=== PATIENT | female | born 1990 | race Caucasian/White ===

== ENCOUNTER 2018-10-24 03:41 | Day surgery (SDC) | payer MEDICAID, OTHER ==
[2018-10-24 04:39] VITALS: BP 105/61; TEMP 97.6; BMI 29.4
[2018-10-24 04:56] LABS: Amnisure Test No Membranes Rupture (No Rupture)
[2018-10-24 04:57] LABS: Amnisure Internal Control QC ACCEPTABLE (ACCEPTABLE)
--- NOTE | 2018-10-24 05:22 | PDOC.LDHP ---
Labor and Delivery H&P Chief complaint: loss of fluid HPI: 27 yo @ 29wks presents with concern for LOF. At 0020 she was feeding her 11 mo child when she suddenly felt a gush of fluid. She did not think it looked like urine. It was clear, nonbloody. She endorses good movement. She denies VB, endorse abdominal cramping but states that it doesn't feel like full on contractions. She endorses persistent vaginal discharge that is milky/white throughout entire . Current gestational age (weeks): 29 Due date: 01/09/19 Dating criteria: last menstrual period Grav: 2 Para: 1 OB History Details: 2018 delivery via to a female at 36.6 wks no complications Current complications: none Abnormal US findings: No Past Medical History: none Current medications: none Previous surgical history: cholecystectomy, other (tonsillectomy, wisdom teeth removed) Allergies/Adverse Reactions: Allergies Allergy/AdvReac Type Severity Reaction Status Date / Time No Known Allergies Allergy Unverified 10/24/18 04:21 Social history: none - Physical Exam Vital signs reviewed and normal: yes General: NAD, resting, other (vaginal speculum exam without signs of gross rupture; milky white discharge at cervical os) Heart: other (systolic murmur 2/6) Lungs: CTAB Abdomen: NTTP Extremeties: no edema FHT: category 2, variable decelerations, variability present (moderate; accels present) [place] contractions every: irritability - Assessment 27 yo @ 29wks here for LOF. - Plan -: 1.), sIUP 2.)LOF, concern for PPROM -sterile speculum completed and no signs of gross rupture, amnisure completed and negative -vaginal discharge present on exam, sent VP3, clint/chlam, and GBS -US for DULCE, weight, presentation ordered -If DULCE wnl, will discharge and follow-up on labs once results return Misbah Lord MD, PGY-2 Review of Systems - Review of Systems Constitutional: denies: chills, fever Respiratory: reports: short of breath (mild). 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 denies: vaginal bleeding, pruritis Neuro/Psych: reports: depression. denies: headache Endocrine: reports: no reported symptoms Addendum - Attending - Attending Attestation Date/Time: 10/24/18 0605 I personally evaluated the patient and discussed the management with Dr. Lockwood. I agree with the History, Examination, Assessment and Plan documented above.
--- NOTE | 2018-10-24 07:37 | ULT ---
OB ULTRASOUND LIMITED: Date: 10/24/18 CLINICAL HISTORY: Premature rupture of membranes. FINDINGS: There is a live intrauterine gestation with a documented cardiac rate of 135 beats/minute. On t he basis of sonographic imaging, the fetus corresponds to a 29 week and 2 day gestation, and the stat ed clinical dates on the basis of last menstrual period are 29 weeks. The estimated weight is 1 298 gm, which falls within the 32nd percentile by Hadlock criteria. DULCE is measured at 17.9 cm. Fetus lies in a breech position on the provided views. Placenta is located primarily in an anterior l ocation without evidence of abruption seen. A dedicated anatomic survey is not performed on the basis of this exam. IMPRESSION: 1. Live intrauterine gestation. 2. DULCE measures 17.9 cm. 3. As necessary, continued imaging follow-up may be obtained. POS: [facility]
[2018-10-24] MEDS ORDERED: Prenatal Vitamin 1 TAB PO SCH (09:00)
[2018-10-28 02:04] LABS: Chlamydia by PCR Not Detected (NotDetected); GC by PCR Not Detected (NotDetected)
== END 2018-10-24 07:45 | disposition home or self-care (01) ==
LOC: L&D/OP 03:41
PROVIDERS: ATTEND Obstetrics & Gynecology
DX: O99.89 Other specified diseases and conditions complicating pregnancy, childbirth and the puerperium (principal); N89.8 Other specified noninflammatory disorders of vagina; Z3A.29 29 weeks gestation of pregnancy; Z90.49 Acquired absence of other specified parts of digestive tract; Z90.89 Acquired absence of other organs
CPT/HCPCS: 76815; 84112; 87081; 87480; 87491; 87510; 87591; 87660; 99285